=== PATIENT | female | born 1960 | race African-American/Black ===

== ENCOUNTER 2018-12-30 09:11 | Observation (INO) ==
[2018-12-30] MEDS ORDERED: HUMULIN R IV ONE (09:36)
[2018-12-30] MEDS ORDERED: NS 1,000 ML IV ONE (09:36)
[2018-12-30 09:48] LABS: BASO# 0.02 X1000 (0.0-0.2); BASO% 0.3 % (0.0-0.8); EOS# 0.13 X1000 (0.0-0.7); EOS% 1.9 % (0.0-10.0); HEMATOCRIT 29.6 % (37.0-47.0); LYMPH# 2.56 X1000 (1.2-3.4); LYMPH% 37.4 % (20.5-51.1); MCH 31.8 PG (27-31); MCHC 33.8 g/dL (33-37); MCV 94.3 FL (81-99); MONO% 7.3 % (1.7-9.3); MPV 8.8 FL (7.4-10.4); NEUT# 3.63 X1000 (1.4-6.5); NEUT% 53.1 % (42.2-75.2); PLT 437 X1000 (130-400); RBC 3.14 XMIL (4.2-5.4); RDW 12.1 % (11.5-14.5); WBC 6.84 X1000 (4.8-10.8)
--- NOTE | 2018-12-30 09:52 | PROVIDER DOCUMENTATION ---
HPI-General Adult - General Chief Complaint: High Blood Sugar Stated Complaint: HIGH BLOOD SUGAR,CHEST TIGHTNESS,DRY MOUTH Time Seen by Provider: 12/30/18 09:21 Source: patient Allergies/Adverse Reactions: Patient Allergies Allergy/AdvReac Type Severity Reaction Status Date / Time lisinopril AdvReac DRY COUGH Verified 10/27/17 08:46 oxycodone AdvReac ITCHING Verified 10/27/17 08:46 Home Medications: Home Medication List Medication Instructions Recorded Confirmed Last Taken Type Losartan/Hydrochlorothiazide 1 each PO DAILY 09/25/12 10/27/17 09/21/15 History [Losartan-Hctz 100-25 mg Tab] Metformin HCl [Metformin HCl ER] 1,000 mg PO BID 09/25/12 10/27/17 09/21/15 History Gabapentin [Neurontin] 100 mg PO QHS 09/21/15 10/27/17 09/20/15 History Methocarbamol [Robaxin] 500 mg PO BID #30 tab 10/27/17 Unknown Rx Trolamine Salicylate 10% Cream 1 applicatn TOP 4XDAY PRN PRN #1 10/27/17 Unknown Rx [Aspercreme] tube - History of Present Illness -Gen Adult Nature of Presenting Problems: Patient is a 58 yobf who complains of hyperglycemia, dry mouth, dizziness, and chest "tightness" that began this morning. 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 I laid down and checked my blood sugar and it was 348 so I took my diabetic shot, then 20 minutes later it was 479." States she had some chest tightness when the dizziness occurred. Dizziness and chest tightness have improved since onset. Also reports polyuria lately. Denies nausea/vomiting, diaphoresis at time of episode, or any other symptoms. She is non-toxic in appearance. Review of Systems - Adult - REVIEW OF SYSTEMS - ADULT Constitutional: reports: no symptoms reported Eyes: reports: no symptoms reported Ears, Nose, Mouth & Throat: reports: see HPI (dry mouth) Cardiovascular: reports: see HPI, chest pain. denies: edema, orthopnea, palpitations, syncope Respiratory: reports: no symptoms reported Gastrointestinal: reports: no symptoms reported. denies: abdominal pain Genitourinary: reports: other (polyuria) Musculoskeletal: reports: no symptoms reported Integumentary: reports: no symptoms reported Neurological: reports: see HPI, dizziness/vertigo. denies: ataxia, headache/migraines, loss of balance, numbness, paresthesia, seizure, slurred speech, syncope, tremors Psychiatric: reports: no symptoms reported Endocrine: reports: no symptoms reported Hematologic/Lymphatic: reports: no symptoms reported Allergic/Immunologic: reports: no symptoms reported All Other Systems: Reviewed and Negative Past History - Adult - PAST MEDICAL HISTORY-ADULT Review of Records: reports: Nursing Assessment Review, Medications Reviewed, Social history reviewed & non-contributory. Major Childhood Illnesses: reports: denies history Cardiovascular: reports: HTN Respiratory: reports: denies history Gastrointestinal: reports: denies history Obstetrical/Gynecological: reports: denies history Genitourinary: reports: denies history Musculoskeletal: reports: denies history Neurological: reports: denies history Endocrine/Immune: reports: Diabetes Other Conditions: reports: denies history - PRIOR SURGERIES/PROCEDURES Surgical/Procedure History: reports: hysterectomy, back/neck - IMMUNIZATION STATUS Childhood Immunizations: See Nurse Assessment Flu Vaccine: See Nurse Assessment - FAMILY HISTORY Family History: reviewed, not pertinent - SOCIAL HISTORY Smoking: non-smoker Physical Exam-General - PHYSICAL EXAM-ADULT Initial Vital Signs Reviewed: Yes - CONSTITUTIONAL General Appearance: alert, no apparent distress. negative: lethargic, slow to respond - EYES Eyes: PERRL/EOMI, pink conjunctivae - HEAD, EARS, NOSE, MOUTH & THROAT HENMT: normocephalic/atraumatic, other (dry mucous membranes) - NECK Neck: non-tender, full range of motion, supple, normal inspection - RESPIRATORY Respiratory: chest non-tender, lungs clear, normal breath sounds, no respiratory distress, no accessory muscle use - CARDIOVASCULAR Cardiovascular: normal peripheral pulses, regular rate, rhythm, no edema, no gallop, no JVD, no murmur - GASTROINTESTINAL (ABDOMEN) Abdominal Exam: normal bowel sounds, non tender, soft, no pulsatile mass. negative: distended, guarding, rigid, rebound, tenderness, hernia, mass - MUSCULOSKELETAL Back Exam: normal inspection Extremity: normal range of motion, non-tender, normal gait, normal inspection - SKIN Integumentary: normal color, warm/dry. negative: cyanosis, diaphoresis, jaundice, mottled, pallor - NEUROLOGIC Neurologic: paperhanger pipe II-XII nml as tested, grossly normal, no motor/sensory deficits. negative: abnormal gait, aphasia, facial droop, focal weakness, motor weakness, sensory deficit - PSYCHIATRIC Psych/Mental Status: normal mood/affect, normal thought content, normal thought process, oriented x 3 Progress - PLAN OF CARE/RESULTS Progress/Plan/Lab Results: Vital Signs - 8 hr 12/30/18 09:16 Temperature 96.8 F L Pulse Rate 63 Respiratory Rate 18 Blood Pressure 126/73 O2 Sat by Pulse Oximetry 98 Laboratory Results - last 24 hr 12/30/18 09:20 POC Glucose 343 H D Orders Category Date Time Status Cardiac Monitoring DIRECTED Care 12/30/18 09:36 Active ED: Orthostatic Vital Signs (E DIRECTED Care 12/30/18 09:36 Active Nursing- Obtain EKG ONCE Care 12/30/18 09:36 Active CHEST-2 VIEWS [RAD] Stat Exams 12/30/18 09:[address] HEAD W/O CONTRAST [CT] Stat Exams 12/30/18 09:37 Ordered ACETONE SERUM [CHEM] Stat Lab 12/30/18 09:44 Ordered CBC WITH DIFF [HEME] Stat Lab 12/30/18 09:35 Results COMPREHENSIVE METABOLIC PANEL [CHEM] Stat Lab 12/30/18 09:44 Ordered MAGNESIUM [CHEM] Stat Lab 12/30/18 09:44 Ordered PRO B-NATRIURETIC PEPTIDE Stat Lab 12/30/18 09:44 Ordered TROPONIN T Stat Lab 12/30/18 09:35 Received UA NIMS W/REFLEX CULT [URINALYSIS] Stat Lab 12/30/18 09:36 Uncollected 0.9% Sodium Chloride Inj [Ns] 1,000 ml Med 12/30/18 09:36 Active IV 999 mls/hr Insulin Human Regular [Humulin R] Med 12/30/18 09:36 Discontinued 5 unit IV NOW ONE Discussed case with Dr. Nicole. Pt denies known hx of anemia. Denies melena. Dr. Nicole recommends having pt f/u with her pcp regarding anemia. 1318- Waiting on repeat troponin to dispo. 1448-Pt told nurse she now wants to be admitted. Dr. Justino pruitt. Result Diagrams: 12/30/18 09:35 12/30/18 09:35 - REASSESSMENT Reassessment #1 Status: improving (Pt states dizziness has resolved now that blood glucose is down. She still has "tightness" under her left breast that she states feels like gas. It is intermittent and the pain does not radiate. She is not short of breath. Offered admission to evaluate chest pain since pt has never had a stress test and pt refuses admission. Offered to repeat heart enzymes/EKG since she does not want to be admitted and pt agreed to stay and do this. States she wants to f/u with Dr. Vaughan outpatient. Discussed risks including KS or .) Reassessment #2 Status: unchanged (No change in chest pain with nitro. Pt still describes as "tightness like gas" rated 3/10. Discussed that she falls well within criteria for chest pain rule out and she still wants to go home to f/u with Dr. Vaughan. She is neurologically intact. Reiterated risks. Pt instructed to return to the ED for any new or worsening symptoms and to f/u with cardiology as well as pcp. She verbalized understanding. Nitro paste removed.) - EKG 1 Time of EKG reading by physician:: 09:36 EKG Read and Signed by:: Low Nicole EKG Interpretation (*Must complete 3 of following elements*): Abnormal Rate: 64 Rhythm: NSR- nonspecific T wave abnormality QRS: normal ST Wave: normal 2 Time of EKG reading by physician:: 13:05 EKG Read and Signed by:: Low Nicole EKG Interpretation (*Must complete 3 of following elements*): Abnormal Rate: 52 Rhythm: sinus bradycardia QRS: normal - XRAY 1 XRAY Study: Chest (IMPRESSION: No acute abnormality. Electronically signed by Wesley Hook 12/30/2018 9:54 AM) - CT/MRI 1 CT Study: Head (IMPRESSION: No hemorrhage. Negative brain CT without contrast. This exam was performed using automated exposure control, adjustment of mA or kV according to patient size, and/or use of iterative reconstruction technique. Electronically signed by Wesley Hook 12/30/2018 10:25 AM) - CONSULTS/PCP/HOSPITALIST Notification #1 *Consult/PCP/Hospitalist*: Dr. Badillo Time Discussed: 14:53 Reason/Comments: admission- chest pain Consult Disposition: Admit Departure - Departure Date of Disposition Decision: 12/30/18 Time of Disposition Decision: 14:34 DIAGNOSIS: Hyperglycemia Anemia Qualifiers: Anemia type: unspecified type Qualified Code(s): D64.9 - Anemia, unspecified Chest pain Qualifiers: Chest pain type: unspecified Qualified Code(s): R07.9 - Chest pain, unspecified Disposition: ADMITTED INPATIENT 09 Certified Medical Emergency: Emergent Condition: Stable Additional Freetext Instructions: ED Follow Up Instructions: You have been treated by a care provider in the Emergency Department. These instructions are being provided to you so you can have an understanding of how to care for yourself upon discharge. Upon discharge from the Emergency Department, you are responsible for making arrangements for follow-up care by a physician of your choice. Take all prescribed medications as directed. Return to the Emergency Department immediately for any new or worsening symptoms. You may call the Physician Referral phone number at [phone] to obtain a list of Physicians who are taking new patients. Work Excuses: Return to School/Parent Work - Critical Care Note This patient required my direct & personal management of CC.: No Attestation - Physician/ SRIDEVI Attestation Patient care was provided by Advanced Practice Provider:: Yes Advanced Practice Provider:: Peewee Tan Advanced Practice Provider documentation review:: The Mid-level provider documentation, treatment plan and medical decision making was reviewed by the physician who agrees with all treatment and medical decision making by the MLP. The physician spent face to face time with patient:: No Advanced Practice Provider documentation review:: Supervising physician onsite and consulted in the evaluation and care of this patient. The physician did not have a face to face encounter with the patient. - HEART Score HEART Score: History: Moderately Suspicious HEART Score: ECG: Non-Specific Repolarization Disturbance/LBBB/PM HEART Score: Age: 45-65 Years HEART Score: Risk Factors for Atherosclerotic Disease: 1 or 2 Risk Factors HEART Score: Troponin: < or = Normal Limit Total HEART Score:: 4
--- NOTE | 2018-12-30 09:56 | Diag Imaging Result Doc PS360 ---
EXAM: CHEST-2 VIEWS HISTORY: chest pain, dizziness TECHNIQUE: Chest two views COMPARISON: 11/17/2018 FINDINGS: The lungs are well expanded. The heart is not enlarged. The vessels are not distended. There are no infiltrates. No pleural effusions. IMPRESSION: No acute abnormality. Electronically signed by Wesley Hook 12/30/2018 9:54 AM
[2018-12-30 10:01] LABS: ACETONE SERUM NEGATIVE (NEGATIVE)
[2018-12-30 10:19] LABS: AGAP 16; ALB/GLOB RATIO 1.6; ALKALINE PHOSPHATASE 73 U/L (32-104); BUN 16 mg/dL (8-22); CALCIUM 9.3 mg/dL (8.8-10.2); CHLORIDE 102 mmol/L (98-107); COSMO 292; GLUCOSE 364 mg/dL (70-104); GOT 14 U/L (10-30); GPT 12 U/L (10-36); MAGNESIUM 1.4 mg/dL (1.5-2.7); POTASSIUM 4.2 mmol/L (3.5-5.1); SODIUM 138 mmol/L (136-145); TCO2 20 mmol/L (25-35); TOTAL BILIRUBIN 0.28 mg/dL (0.20-1.00); TOTAL PROTEIN 6.5 g/dL (6.3-8.3)
--- NOTE | 2018-12-30 10:27 | Diag Imaging Result Doc PS360 ---
EXAM: CT HEAD W/O CONTRAST HISTORY: dizziness TECHNIQUE: CT head without contrast COMPARISON: None. FINDINGS: No parenchymal hemorrhage. No epidural or subdural hematoma. No subarachnoid hemorrhage. No mass identified on this noncontrasted exam. No hydrocephalus. No sinus opacification. IMPRESSION: No hemorrhage. Negative brain CT without contrast. This exam was performed using automated exposure control, adjustment of mA or kV according to patient size, and/or use of iterative reconstruction technique. Electronically signed by Wesley Hook 12/30/2018 10:25 AM
[2018-12-30 10:45] LABS: URINE SOURCE CLEAN CATCH
[2018-12-30 10:56] LABS: BILIRUBIN URINE NEGATIVE (NEGATIVE); BLOOD URINE NEGATIVE (NEGATIVE); COLOR YELLOW; GLUCOSE URINE >1000 mg/dL (NEGATIVE); KETONE URINE NEGATIVE (NEGATIVE); LEUKOCYTES URINE NEGATIVE (NEGATIVE); NITRITE URINE NEGATIVE (NEGATIVE); PH URINE 6.5; PROTEIN URINE NEGATIVE (NEGATIVE); SP GRAVITY URINE 1.012; TURBIDITY URINE CLEAR (CLEAR); UROBILINOGEN URINE NORMAL (NORMAL)
[2018-12-30 10:58] LABS: UR EPITHELIAL CELLS <10 /HPF (<10); URINE BACTERIA NEGATIVE /HPF; URINE RBC <10 /HPF (<10); URINE WBC <10 /HPF (<10)
--- NOTE | 2018-12-30 11:50 | ED EKG INTERP ---
This chart was entered by Gilda Francis Scribe, acting as scribe for Low Nicole DO. EKG Interpretation - EKG Time of EKG reading by physician:: 11:39 EKG Read and Signed by:: Low Nicole EKG Interpretation (*Must complete 3 of following elements*): Abnormal Rate: 60 Rhythm: normal sinus QRS: LVH (moderate criteria may be normal variant) ST Wave: non-specific ST changes Attestation - Physician/ SRIDEVI Attestation Patient care was provided by Advanced Practice Provider:: No The physician spent face to face time with patient:: Yes Advanced Practice Provider documentation review:: Supervising physician onsite and consulted in the evaluation and care of this patient. The physician did have a face to face encounter with the patient. This chart was documented by the indicated scribe, (Gilda Francis Scribe) and accurately reflects the services I performed and decisions made by Corey guillory Thomas E., DO, as attested by the provider's signature.
[2018-12-30] MEDS ORDERED: ASPIRIN PO ONE (11:52)
[2018-12-30] MEDS ORDERED: NITROGLYCERIN TOP ONE (13:51)
[2018-12-30] MEDS ORDERED: MORPHINE IV PRN (15:03)
[2018-12-30] MEDS ORDERED: ZOFRAN IV PRN (15:03)
[2018-12-30] MEDS: HUMULIN R SUBQ SCH ×2 (17:18→21:02)
[2018-12-30] MEDS ORDERED: TRESIBA FLEXTOUCH U-100 SUBQ SCH (21:00)
[2018-12-30] MEDS: LABETALOL IV PRN (21:10)
--- NOTE | 2018-12-30 21:34 | HISTORY AND PHYSICAL ---
HISTORY OF PRESENT ILLNESS: Ms. Krishnan, who is a 58-year-old female, comes with 2 complaints. When she woke up this morning and after she ate her breakfast, she found her blood sugar was 400 and she came to the emergency room. At that time, she had some pain in the pectoral area in the left side. She never had any issues with her heart; however, she had sludge in the gallbladder. PAST MEDICAL HISTORY: Ms. Krishnan has diabetes and hypertension for almost 20 years now. PAST SURGICAL HISTORY: She had 2 back surgeries and partial hysterectomy. Other details are noncontributory. SOCIAL HISTORY: She does not smoke, does not drink. ALLERGIES: Oxycodone and lisinopril. REVIEW OF SYSTEMS: Regarding the chest pain, she has a feeling of indigestion at times and pain in the precordial area. It does not radiate to the extremities or to the left arm or to the neck. It is not related to exertion. MEDICATIONS: Include Tresiba 25 units; metformin 850 mg 3 times a day; omeprazole 40 mg daily; sulindac once daily; losartan/hydrochlorothiazide. PHYSICAL EXAMINATION: VITAL SIGNS: Temperature normal, pulse 60 per minute, respiratory rate 20 per minute, blood pressure 222/86. GENERAL: There is no evidence of lymphadenopathy, thyroid enlargement, pedal edema, calf tenderness, anemia, cyanosis or clubbing. HEENT: Head normocephalic. Pupils: PERRLA. Fundus examination normal. ENT examination unremarkable. NECK: Supple JVP normal. EXTREMITIES: Pedal pulses well felt. BREASTS: Exam not done. CHEST: Normal inspection. LUNGS: Clear on auscultation. HEART: PMI in the normal position. Heart sounds normal. No murmur, gallop or rub noted. ABDOMEN: Nondistended. Hernial orifices normal. No guarding, rigidity, free fluid, masses or organomegaly. Bowel sounds normal. RECTAL: Exam deferred. DEEP FAT FRY COOK: Higher functions normal. Cranial nerves normal. Motor and sensory system examination unremarkable. Deep tendon reflexes normal. Plantars downgoing. No cerebellar signs or signs of meningeal irritation on locomotor exam. MUSCULOSKELETAL: Skull and spine examination normal for age. SKIN: Exam unremarkable. IMPRESSION AND PLAN: 1. Chest pain, atypical. 2. Uncontrolled diabetes. The patient is on insulin and large dose of metformin. We will continue with the current management. 3. We will get a Cardiology consult. cc: Russ Badillo MD
[2018-12-30] MEDS: CLINORIL PO SCH (21:39)
[2018-12-30] MEDS: NEURONTIN PO SCH (21:39)
[2018-12-31] MEDS: TYLENOL PO PRN (03:58)
[2018-12-31] MEDS: LABETALOL IV PRN (03:59)
[2018-12-31] MEDS: HUMULIN R SUBQ SCH ×4 (06:46→21:33)
--- NOTE | 2018-12-31 07:49 | Diag Imaging Result Doc PS360 ---
EXAM: CHEST-2 VIEWS - 12/31/2018 HISTORY: chest pain TECHNIQUE: Chest two views COMPARISON: 12/30/2018 FINDINGS: Heart size appears normal. There is a tiny left midlung granuloma from old granulomatous disease. The lungs otherwise appear clear. There is no pleural effusion or pneumothorax identified. There is some thoracic spondylosis noted. IMPRESSION: No evidence of acute disease. Electronically signed by Otoniel Corrales 12/31/2018 7:47 AM
[2018-12-31] MEDS: PRILOSEC PO SCH (09:47)
[2018-12-31] MEDS: HYZAAR 50/12.5 MG PO SCH (09:47)
[2018-12-31] MEDS: GLUCOPHAGE PO SCH ×3 (09:48→21:33)
--- NOTE | 2018-12-31 13:08 | PROGRESS NOTE ---
DATE: 12/31/2018 SUBJECTIVE: Ms. Krishnan was admitted yesterday. Her vital signs are stable. She does not have any more chest pain. She has a Cardiology consult, and is probably to get a stress test tomorrow morning. We are going to continue the current management. Her cardiac enzymes have been negative. Chest x-ray is negative. Will continue with the current management on her. -1 cc: Russ Badillo MD
--- NOTE | 2018-12-31 13:59 | CONSULTATION ---
DATE OF CONSULTATION: 12/31/2018 IMPRESSION: 1. Atypical chest pain. 2. Hyperglycemia with history of type 2 diabetes mellitus for approximately 20 years, requiring insulin. 3. Hypertension for approximately 18 years. 4. Abnormal electrocardiogram with minimal voltage criteria for left ventricular hypertrophy and nonspecific T-wave abnormality. RECOMMENDATIONS: 1. Follow up cardiac enzymes. 2. Agree with plans for pursuit of stress myocardial perfusion imaging. HISTORY: This 58-year-old, -[place] female with a past history of diabetes mellitus for approximately 20 years and requiring insulin for the last 2 years, hypertension for 18 years, and gastroesophageal reflux, was admitted through the emergency room for evaluation of chest pain. She has had several instances of hyperglycemia this month. She checked her sugar this morning and her glucose was over 430. She became concerned and came to the emergency room for evaluation. She was evaluated in the emergency room and was asked about chest discomfort due to concerns regarding her risk factors for coronary artery disease. She reported some atypical left lower lateral discomfort rated as a 3 on a scale of 10. For this reason, she was admitted for further evaluation. She relates that discomfort seemed to resolve after some flatulence. She is modestly active and has no exertional chest symptoms. She is a nonsmoker. PAST MEDICAL HISTORY: 1. Obesity. 2. Type 2 diabetes mellitus for 20 years, requiring insulin for the last 2 years. She has associated peripheral neuropathy. 3. Hypertension for approximately 18 years. 4. Peptic ulcer disease and gastroesophageal reflux disease. PAST SURGICAL HISTORY: Includes hysterectomy, low back surgery, and repeat low back surgery. ALLERGIES: She is allergic or intolerant to lisinopril and oxycodone. MEDICATIONS PRIOR TO ADMISSION: As listed. SOCIAL HISTORY: She is a nonsmoker. She does not use alcohol. FAMILY HISTORY: Negative for premature coronary artery disease. REVIEW OF SYSTEMS: Pulmonary: Negative. Gastrointestinal: Noncontributory beyond history of present illness. Constitutional: Noncontributory beyond history of present illness. Remainder review of systems negative/noncontributory beyond history of present illness with 14 total systems reviewed. PHYSICAL EXAMINATION: This is an obese, adult, -[place] female in no distress. Vital Signs: Blood pressure 169/77, heart rate 59 and regular, oxygen saturation 99% on room air. HEENT Examination: Extraocular movements appear intact. Mucous membranes are moist. Neck: Supple without jugular venous distention. Chest: Clear to auscultation. Cardiac Examination: Reveals a regular rate and rhythm without appreciable murmur or gallop. Abdomen: Soft. Bowel sounds are normal. Extremities: Without edema. Neurologic: Examination reveals her to be alert and fully oriented. Speech is fluent. She moves all 4 extremities equally well. Skin: Warm and dry. Psychiatric: Examination reveals mood to be appropriate. DIAGNOSTIC DATA: A 12 lead EKG demonstrates sinus bradycardia, minimal voltage criteria for left ventricular hypertrophy, and nonspecific T-wave abnormality. LABORATORY DATA: Includes a white blood cell count of 6.84, hematocrit 29.6, hemoglobin 10.0, platelet count 437,000. Sodium 138, potassium 4.2, chloride 102, carbon dioxide 20, BUN 16, creatinine 1.0, glucose 364. Troponin T less than 0.01. Followup troponin T less than 0.01 and further followup troponin T less than 0.01. cc: MD Russ Jenkins MD
[2018-12-31] MEDS: CLINORIL PO SCH (22:22)
[2018-12-31] MEDS: NEURONTIN PO SCH (22:24)
[2018-12-31] MEDS ORDERED: TRESIBA FLEXTOUCH U-100 SUBQ SCH (23:00)
[2019-01-01] MEDS: LABETALOL IV PRN ×3 (00:38→17:25)
[2019-01-01] MEDS: HUMULIN R SUBQ SCH ×3 (06:50→15:40)
[2019-01-01] MEDS: PRILOSEC PO SCH (06:51)
--- NOTE | 2019-01-01 07:01 | EKG Report ---
Test Performed on : 12/30/2018 11:32:09 AM Test Reason : CP Blood Pressure : / mmHG Vent. Rate : 060 BPM Atrial Rate : 060 BPM P-R Int : 160 ms QRS Dur : 082 ms QT Int : 424 ms P-R-T Axes : 042 -20 -12 degrees QTc Int : 424 ms Normal sinus rhythm. Moderate voltage criteria for LVH, may be normal variant Nonspecific T wave abnormality Abnormal ECG When compared with ECG of 17-NOV-2018 18:09, Inverted T waves have replaced nonspecific T wave abnormality in Lateral leads Unconfirmed Result
--- NOTE | 2019-01-01 07:27 | EKG Report ---
Test Performed on : 12/31/2018 06:51:54 AM Test Reason : CP Blood Pressure : / mmHG Vent. Rate : 059 BPM Atrial Rate : 059 BPM P-R Int : 176 ms QRS Dur : 086 ms QT Int : 414 ms P-R-T Axes : 057 -27 -28 degrees QTc Int : 409 ms Sinus bradycardia. Minimal voltage criteria for LVH, may be normal variant T wave abnormality, consider anterolateral ischemia Abnormal ECG When compared with ECG of 30-DEC-2018 13:03, (Unconfirmed) T wave inversion now evident in Anterior leads Confirmed by Ryley ROMO, Usman Pinedo ([id number]) on 01/01/2019 5:05:58 PM
--- NOTE | 2019-01-01 07:53 | EKG Report ---
Test Performed on : 12/30/2018 1:03:28 PM Test Reason : ED. NO EKG ORDER FOR MUSE Blood Pressure : / mmHG Vent. Rate : 052 BPM Atrial Rate : 052 BPM P-R Int : 144 ms QRS Dur : 086 ms QT Int : 446 ms P-R-T Axes : 036 -22 -13 degrees QTc Int : 414 ms Sinus bradycardia. Minimal voltage criteria for LVH, may be normal variant Nonspecific T wave abnormality Abnormal ECG When compared with ECG of 30-DEC-2018 11:32, (Unconfirmed) Nonspecific T wave abnormality no longer evident in Anterior leads Unconfirmed Result
[2019-01-01] MEDS ORDERED: LEXISCAN ONE (07:59)
[2019-01-01] MEDS: GLUCOPHAGE PO SCH ×3 (10:07→17:07)
[2019-01-01] MEDS: HYZAAR 50/12.5 MG PO SCH ×2 (10:19→11:10)
[2019-01-01] MEDS: TYLENOL PO PRN (11:14)
--- NOTE | 2019-01-01 14:58 | Diag Imaging Result Document ---
PROCEDURE NAME: MYOCARDIAL PERF SCAN, STR/REST - 01/01/2019 SUMMARY: The patient was administered 12.7 mCi of technetium-99m sestamibi after which resting cardiac images were obtained. The patient was subsequently exercised on treadmill according to a Capo protocol and exercised for a total of 6 minutes achieving a maximum workload of stage II and 7.0 METS. With exercise, the heart increased from 59 beats per minute to 142 beats per minute, representing 88% of maximal age predicted heart rate. The blood pressure increased from 198/96 to 204/97. With exercise, the patient denied chest discomfort. At peak exercise, the patient was administered 35.9 mCi of technetium-99m sestamibi after which gated stress cardiac images were obtained. Baseline ECG demonstrated sinus bradycardia, left axis deviation, minimal voltage criteria for left hypertrophy and nonspecific T-wave abnormality. Delayed precordial R-wave progression also demonstrated. With exercise, there were no diagnostic ST-segment changes. SPECT images were reconstructed in the short, horizontal, and vertical long axis. Review of these images demonstrated homogeneous uptake of radiopharmaceutical on both stress and resting images. Gated images demonstrated a calculated left ejection fraction of 73% with symmetrical wall motion/thickening. CONCLUSIONS: 1. Fair aerobic capacity. Target heart rate achieved. 2. Clinically negative for chest pain. 3. Electrocardiographically, there were no diagnostic ST-segment changes on ECG with exercise. 4. Normal exercise sestamibi images. cc: Abran Pastor MD
--- NOTE | 2019-01-01 16:43 | PROGRESS NOTE ---
DATE: 01/01/2019 SUBJECTIVE: Patient continues without chest discomfort or shortness of breath on room air. OBJECTIVE: Vital Signs: Blood pressure 150/77, heart rate 59, oxygen saturation 96% on room air. Neck: There is no significant jugular venous distention. Chest: Clear to auscultation. Cardiac: Reveals a regular rate and rhythm without appreciable murmur or gallop. There is no evidence of peripheral edema. LABORATORY DATA: Includes initial troponin less than 0.01. Followup troponin less than 0.01. A 3rd follow-up troponin less than 0.01. Exercise sestamibi study normal. IMPRESSION: 1. Recent atypical chest pain. 2. Hyperglycemia with history of type 2 diabetes mellitus for approximately 20 years, requiring insulin. 3. Hypertension for approximately 18 years. 4. Abnormal ECG with minimal voltage criteria for left ventricular hypertrophy and nonspecific T- wave abnormality. RECOMMENDATIONS: 1. Given negative/normal exercise myocardial perfusion study, suspect her recent chest symptoms are noncardiac. 2. Continue efforts to modify coronary risk profile. 3. Given apparent clinical stability from a cardiovascular standpoint, I will see her further on an as-needed basis. She appears to be sufficiently stable from a cardiovascular standpoint, to be discharged soon. cc: MD Russ Jenkins MD
[2019-01-01 20:05] VITALS: BP 154/73
== END 2019-01-01 22:11 | disposition home or self-care (01) ==
LOC: ED 09:11 → 4N 09:12 → INTOOBSV 09:12
PROVIDERS: ADMIT Internal Medicine; ATTEND Internal Medicine
CPT/HCPCS: 70450; 71020; 71046; 78452; 80053; 81001; 82009; 82948; 83735; 83880; 84484; 85025; 93005; 93010; 93017; 94761; A9270; A9500; J2785; J7030; XXXXX